=== PATIENT | female | born 1960 | race Caucasian/White ===

== ENCOUNTER 2017-01-03 09:01 | Emergency (ER) | payer BC ==
--- NOTE | 2017-01-03 09:21 | UC ---
Skin Complaint HPI - HPI Summary HPI Summary: Onset 12/31/16 upper left inner thigh redness, pain,fluid feeling swelling with warmth; pt suspects insect denies fever or redness spreading . very active and just ernt to [place] and there were significant numbers of insect bites all over the body from deerr and black flies. No ticks. No recent trauma or falls. No obvious injury or pain to that area . no fever . denies SOB/ RAJAN / CP / calf pain [ End ] - History of Current Complaint Chief Complaint: UCSkin Time Seen by Provider: 01/03/17 09:19 Stated Complaint: LEFT LEG SKIN COMPLAINT Hx Obtained From: Patient Hx Last Menstrual Period: 1 yr ?: No Onset/Duration: Sudden Onset - Allergy/Home Medications Allergies/Adverse Reactions: Allergies Allergy/AdvReac Type Severity Reaction Status Date / Time Sulfa Antibiotics Allergy Rash Verified 01/03/17 09:12 Home Medications: Home Medications Acetaminophen TAB* [Tylenol TAB*] 650 mg PO Q8H PRN 01/03/17 [History Confirmed 01/03/17] Antidepressant Tab 1 tab PO WEEKLY 01/03/17 [History Confirmed 01/03/17] Review of Systems Constitutional: Negative Skin: Negative, Other - redness Eyes: Negative ENT: Negative Respiratory: Negative Cardiovascular: Negative Gastrointestinal: Negative Genitourinary: Negative Motor: Negative Neurovascular: Negative Musculoskeletal: Negative Neurological: Negative Psychological: Negative All Other Systems Reviewed And Are Negative: Yes PMH/Surg Hx/FS Hx/Imm Hx Previously Healthy: Yes Psychological History: Depression - Surgical History Surgical History: Yes Surgery Procedure, Year, and Place: tonsils - Social History Occupation: Employed Full-time Lives: With Family Alcohol Use: Occasionally Substance Use Type: None Smoking Status (MU): Never Smoked Tobacco Physical Exam Triage Information Reviewed: Yes Appearance: Well-Appearing, No Pain Distress, Well-Nourished Vital Signs: Initial Vital Signs Temp 99.3 F 01/03/17 09:05 Pulse 87 01/03/17 09:05 Resp 18 01/03/17 09:05 BP 106/68 01/03/17 09:05 Vital Signs Reviewed: Yes Eye Exam: Normal Neck: Positive: 1 Respiratory Exam: Normal Cardiovascular Exam: Normal Musculoskeletal Exam: Normal Neurological Exam: Normal Psychological Exam: Normal Skin Exam: Normal Skin: Positive: significant lesion(s) - numerous bug bites / insect bites on the b/l arms and legs - Additional Comments Right posterior leg about middle way down hamstring area with red, raised, palpable (2x2cm) tender area with induration present and small insect bite in center. no streaking. no homans. no drainage and superficial but not close enough to I&D. Course/Dx - Course Course Of Treatment: Appears to be superficial potential abscess developing with cellulitis around the area. Numerous insect bites indicating likely insect bite causing this infection. We discussed at length potential DVT but uncommonly to be as easily palpable , she is very active and just walked up [employer] and no trauma so very low chance for DVT. She is agreeable to start antibiotics, hot packing TID and if the area spreads or not improved then seek care in 24 hours for potential I&D or pending the appearance of the area get a sono if warranted. - Differential Diagnoses - Skin Complaint Differential Diagnoses: Abscess, Contact Dermatitis - Diagnoses Provider Diagnoses: Cellulitis right lower extremity from insect bite Discharge - Discharge Plan Condition: Good Disposition: HOME Prescriptions: Cephalexin CAP* [Keflex 500 CAP*] 500 mg PO TID #30 cap Patient Education Materials: Cellulitis (ED) Referrals: Carmen Noonan MD [Primary Care Provider] - 1 Day Additional Instructions: As we discussed if the redness spreads or the area becomes larger seek medical care immediately. If you develop any shortness of breath then seek care as well. Also continue with your probiotics.
[2017-01-03 09:37] VITALS: BP 106/68
== END 2017-01-03 09:42 | disposition home or self-care (01) ==
LOC: UCCORT 09:01
DX: S80.861A Insect bite (nonvenomous), right lower leg, initial encounter (principal); L03.115 Cellulitis of right lower limb; W57.XXXA Bitten or stung by nonvenomous insect and other nonvenomous arthropods, initial encounter; Y93.9 Activity, unspecified; Y92.9 Unspecified place or not applicable; Z88.2 Allergy status to sulfonamides; F32.9 Major depressive disorder, single episode, unspecified
CPT/HCPCS: 99202; G0463

== ENCOUNTER 2017-03-10 15:20 | Emergency (ER) | payer BC ==
[2017-03-10 15:39] VITALS: BP 105/55
--- NOTE | 2017-03-10 16:26 | UC ---
Complaint Female HPI - HPI Summary HPI Summary: pt c/o sudden onset of frequency, urgency and dysuria X 1 day. - History Of Current Complaint Chief Complaint: UCGU Stated Complaint: URINARY Time Seen by Provider: 03/10/17 16:12 Hx Obtained From: Patient Hx Last Menstrual Period: 1 yr ?: No Onset/Duration: Sudden Onset, Still Present Severity Initially: Mild Severity Currently: Mild Character: Burning Aggravating Factor(s): Urination Associated Signs And Symptoms: Positive: Negative - Risk Factors Ectopic Risk Factor: Negative Ovarian Torsion Risk Factor: Negative - Allergies/Home Medications Allergies/Adverse Reactions: Allergies Allergy/AdvReac Type Severity Reaction Status Date / Time Sulfa Antibiotics Allergy Rash Verified 03/10/17 15:39 PMH/Surg Hx/FS Hx/Imm Hx Previously Healthy: Yes - Surgical History Surgical History: Yes Surgery Procedure, Year, and Place: tonsils - Family History Known Family History: Positive: Cardiac Disease - Social History Occupation: Employed Full-time Lives: With Family Alcohol Use: Occasionally Substance Use Type: None Smoking Status (MU): Never Smoked Tobacco Have You Smoked in the Last Year: No Review of Systems Constitutional: Negative Skin: Negative Eyes: Negative ENT: Negative Respiratory: Negative Cardiovascular: Negative Gastrointestinal: Negative Genitourinary: Dysuria, Frequency, Urgency Motor: Negative Neurovascular: Negative Musculoskeletal: Negative Neurological: Negative Psychological: Negative Is Patient Immunocompromised?: No All Other Systems Reviewed And Are Negative: Yes Physical Exam Triage Information Reviewed: Yes Appearance: Well-Appearing Vital Signs: Initial Vital Signs Temp 97.7 F 03/10/17 15:36 Pulse 66 03/10/17 15:36 Resp 16 03/10/17 15:36 BP 105/55 03/10/17 15:36 Pulse Ox 100 03/10/17 15:36 Eye Exam: Normal ENT Exam: Normal Neck exam: Normal Respiratory Exam: Normal Cardiovascular Exam: Normal Abdominal Exam: Normal Musculoskeletal Exam: Normal Neurological Exam: Normal Psychological Exam: Normal Skin Exam: Normal Complaint Female Dx - Course Course Of Treatment: I discussed with the pt the need to follow up with your PCP regarding the finding today of Hematuria. Pt verbalized understanding and agreed to plan of care. - Differential Dx/Diagnosis Differential Diagnosis/HQI/PQRI: Urinary Tract Infection Provider Diagnoses: dysuria. hematuria Discharge - Discharge Plan Condition: Stable Disposition: HOME Prescriptions: Cephalexin CAP* [Keflex 500 CAP*] 500 mg PO Q12H #10 cap Patient Education Materials: Hematuria (ED), Dysuria (ED) Referrals: Juliet Jean Baptiste MD [Primary Care Provider] - (Please follow up with your PCP or return to clinic. )
--- NOTE | 2017-03-14 12:27 | UC ---
Progress - Progress Note Progress Note: neg cx -- stop antibiotics and f/u pcp
== END 2017-03-10 16:35 | disposition home or self-care (01) ==
LOC: UCCORT 15:20
DX: R30.0 Dysuria (principal); R31.9 Hematuria, unspecified; Z88.2 Allergy status to sulfonamides
CPT/HCPCS: 81003; 87086; 99212; G0463

== ENCOUNTER 2018-06-10 09:10 | Emergency (ER) | payer BC ==
[2018-06-10 09:49] VITALS: BP 92/71
--- NOTE | 2018-06-10 10:17 | UC ---
UC General HPI - HPI Summary HPI Summary: pt c/o painful-hard lump L jaw that is worsening over 2 days. she got a little puss from it. no hx MRSA, dental pain, fever or DM. tx'ing with warm compresses. - History of Current Complaint Chief Complaint: NIKOLAIkin Stated Complaint: SKIN CONCERN - FACIAL Time Seen by Provider: 06/10/18 10:10 Hx Obtained From: Patient Hx Last Menstrual Period: 1 yr Onset/Duration: Gradual Onset Timing: Constant Pain Intensity: 5 Associated Signs & Symptoms: Negative: Headache - Allergy/Home Medications Allergies/Adverse Reactions: Allergies Allergy/AdvReac Type Severity Reaction Status Date / Time Sulfa (Sulfonamide Allergy Rash Verified 06/10/18 09:44 Antibiotics) Home Medications: Home Medications Multivitamins/Minerals TAB* [Theragran/minerals TAB*] 1 tab PO DAILY 06/10/18 [ History Confirmed 06/10/18] PMH/Surg Hx/FS Hx/Imm Hx Previously Healthy: Yes - Surgical History Surgical History: Yes Surgery Procedure, Year, and Place: tonsils - Family History Known Family History: Positive: Cardiac Disease - Social History Occupation: Retired Alcohol Use: Occasionally Substance Use Type: None Smoking Status (MU): Never Smoked Tobacco Have You Smoked in the Last Year: No - Immunization History Vaccination Up to Date: Yes Review of Systems All Other Systems Reviewed And Are Negative: Yes Constitutional: Positive: Negative Skin: Positive: Rash - BUMP L JAW Eyes: Positive: Negative ENT: Positive: Negative Respiratory: Positive: Negative Cardiovascular: Positive: Negative Gastrointestinal: Positive: Negative Genitourinary: Positive: Negative Motor: Positive: Negative Neurovascular: Positive: Negative Musculoskeletal: Positive: Negative Neurological: Positive: Negative Psychological: Positive: Negative Physical Exam Triage Information Reviewed: Yes Appearance: Well-Appearing Vital Signs: Initial Vital Signs Temp 97.8 F 06/10/18 09:45 Pulse 87 06/10/18 09:45 Resp 14 06/10/18 09:45 BP 92/71 06/10/18 09:45 Pulse Ox 100 06/10/18 09:45 Eye Exam: Normal Eyes: Positive: Conjunctiva Clear ENT: Positive: Pharynx normal, TMs normal. Negative: Nasal congestion, Nasal drainage Dental: Negative: Percussion Tenderness @, Dental Fracture @, Abscess @ Neck: Positive: Supple, Nontender, No Lymphadenopathy Respiratory: Positive: Lungs clear, Normal breath sounds Cardiovascular: Positive: RRR, No Murmur Abdomen Description: Positive: Nontender, No Organomegaly, Soft Bowel Sounds: Positive: Present Musculoskeletal: Positive: ROM Intact Neurological: Positive: Alert, Other: - CN 2-12 GROSSLY INTACT Skin Exam: Normal, Other - 2CM RED INDURATED AREA L SIDE OF JAW ADJACENT TO MENTAL NERVE C/W ABSCESS. CENTRAL ABRASION BUT NOT DRAINING. Course/Dx - Course Course Of Treatment: ABSCESS BY A NERVE THUS WILL REFER TO ENT FOR ADDITIONAL TX. APPT TODAY. SINGLE DOSE OF KEFLE GIVEN HERE. ADDITIONAL ANTIBIOTIC DEFER TO ENT. - Diagnoses Provider Diagnosis: Abscess of jaw, left Discharge - Sign-Out/Discharge Documenting (check all that apply): Patient Departure All imaging exams completed and their final reports reviewed: No Studies - Discharge Plan Condition: Stable Disposition: HOME Patient Education Materials: Abscess (ED) Referrals: Jevon Ndiaye MD [Medical Doctor] - Additional Instructions: FOLLOW UP TODAY AT 1:45PM SCHEDULED BY [facility]. THEY ARE LOCATED DIRECTLY BEHIND THIS [facility] - Billing Disposition and Condition Condition: STABLE Disposition: Home
[2018-06-10] MEDS ORDERED: Cephalexin CAP* 500 MG PO ONE (10:26)
== END 2018-06-10 10:36 | disposition home or self-care (01) ==
LOC: UCCORT 09:10
DX: M27.2 Inflammatory conditions of jaws (principal); Z88.2 Allergy status to sulfonamides
CPT/HCPCS: 99212; A9270-GY; G0463

== ENCOUNTER 2018-12-16 09:40 | Emergency (ER) | payer BC ==
--- OUTSIDE RECORDS SUMMARY | 2018-12-16 10:00 | XMS REPORT | Continuity of Care Document ---
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 Payers Date Identification Numbers Payment Provider Subscriber Effective: 2014 Policy Number: [id number] [employer] Georgette Muñoz PayID: [id number] [address] [address] [place] [address] Problems Active Problems Provider Date Mild recurrent major depression Juliet Medina MD Onset: 08/18/2014 Cobalamin deficiency Juliet Medina MD Onset: 04/06/2016 Iron deficiency anemia Juliet Medina MD Onset: 04/06/2016 Hematuria syndrome Juliet Medina MD Onset: 05/01/2017 Family History Date Family Member(s) Observation Comments General Leukemia General Hypothyroidism Father Leukemia Father Av malformation LEFT side of causes seizures. 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 ETOH Use Occasionally consumes alcohol Tobacco Use Start: Unknown Patient has never smoked Smoking Status Reviewed: 05/01/18 Patient has never smoked Allergies, Adverse Reactions, Alerts Active Allergies Reaction Severity Comments Date Sulfa Drugs HIVES 08/18/2014 Medications Active Medications SIG Qnty Indications Ordering Provider Date Fluoxetine HCL (PMDD) 1po daily 30caps F33.0 Juliet Medina MD 09/23/2018 10mg Capsules Womens 50+ Advanced 1 by mouth Unknown every day Capsules Probiotic 1 by mouth Unknown Capsules every day History Medications Fluoxetine HCL (PMDD) 1po daily 30caps F33.0 Juliet Medina MD 2014 - 04/30/2018 10mg Capsules Fluoxetine HCL 1 every week 4caps F33.0 Juliet Medina MD - 90mg 04/05/2015 Capsules Immunizations CPT Code Status Date Vaccine Lot # [id number] Refused 05/01/2018 Flu Vaccine NOS [id number] Refused 05/01/2018 Shingrix (Shingles) Zoster Vaccine HZV, Recombinant , Subunit, Adj Vital Signs Date Vital Result Comment 12/09/2018 1:28pm Weight 146.00 lb Heart Rate 80 /min BP Systolic 108 mmHg BP Diastolic 66 mmHg Respiratory Rate 18 /min Height 67.5 inches 5'7.50" O2 % BldC Oximetry 98 % Ra BMI (Body Mass Index) 22.5 kg/m2 05/01/2018 1:59pm Weight 140.00 lb Heart Rate 75 /min BP Systolic 110 mmHg BP Diastolic 68 mmHg Respiratory Rate 16 /min Height 67.5 inches 5'7.50" O2 % BldC Oximetry 99 % Ra BMI (Body Mass Index) 21.6 kg/m2 04/29/2017 3:00pm Weight 140.00 lb Heart Rate 68 /min BP Systolic 102 mmHg BP Diastolic 70 mmHg Respiratory Rate 18 /min Height 67.5 inches 5'7.50" 04/29/17 BMI (Body Mass Index) 21.6 kg/m2 04/06/2016 2:06pm Weight 136.00 lb Heart Rate 76 /min BP Systolic 98 mmHg BP Diastolic 60 mmHg Respiratory Rate 18 /min Height 67.5 inches 5'7.50" 04/06/16 BMI (Body Mass Index) 21.0 kg/m2 06/28/2015 2:45pm Weight 136.00 lb Heart Rate 76 /min BP Systolic 102 mmHg BP Diastolic 70 mmHg Respiratory Rate 18 /min Height 67.5 inches 5'7.50" 08/18/14 BMI (Body Mass Index) 21.0 kg/m2 04/05/2015 2:21pm Weight 137.00 lb Heart Rate 76 /min BP Systolic 112 mmHg BP Diastolic 70 mmHg Respiratory Rate 18 /min Height 67.5 inches 5'7.50" 08/18/14 BMI (Body Mass Index) 21.1 kg/m2 08/18/2014 9:33am Weight 140.00 lb Heart Rate 72 /min BP Systolic 116 mmHg BP Diastolic 70 mmHg Respiratory Rate 18 /min Height 67.5 inches 5'7.50" 08/18/14 BMI (Body Mass Index) 21.6 kg/m2 Results Test Date Facility Test Result H/L Range Note CBS 07/15/2018 [facility] White Blood 4.9 K/uL N 3.1- 10.7 1 W/Automated (315)- - Count Diff Red Blood Count 4.51 M/uL N 3.90-5.40 Hemoglobin 14.0 gm/dL N 11.6-15.8 Hematocrit 41.3 % N 36.0-46.1 Mean Cell Volume 91.6 fl N 80.9-99.0 Mean Corpuscular HGB 31.0 pg N 25.9-32.7 Mean Corpuscular HGB Conc 33.9 g/dL N 30.8-34.3 Platelet Count 293 K/uL N 155-360 Red Cell Distri Width SD 42.6 fl N 36-47 Red Cell Distri Width %CV 13.0 % N 11.7-14.4 Mean Platelet Volume 9.0 fL N 8.9-12.4 Neut% 67.0 % N 40.4-72.8 Lymph % 22.4 % N 20.0-42.0 [place] % 8.0 % N 4.3-13.2 Eo% 2.0 % N 0.0-6.6 Bas% 0.6 % N 0.0-1.1 Neut# 3.28 K/uL N 1.8-7.0 Lymph # 1.10 K/uL N 1.0-4.0 [place] # 0.39 K/uL N 0.3-0.9 Eos # 0.10 K/uL N 0.0-0.5 Baso # 0.03 K/uL N 0.0-0.1 Laboratory test 07/15/2018 [facility] Vitamin B12 406 pg/ mL N 193-986 finding (315)- - Ferritin 17 ng/mL N 8-252 Comprehensive Metabolic 07/15/2018 [facility] Glucose 83 mg/dL N 74-106 Panel (315)- - BUN 20 mg/dL High 7-18 Creatinine 0.8 mg/dL 0.6-1.3 Glom Filtration Rate, Estimate >60 mL/min >60 If >60 mL/min >60 2 BUN/Creat 25.0 ratio Sodium 143 mmol/L N 136-145 Potassium 4.2 mmol/L N 3.5-5.1 Chloride 109 mmol/L High 98-107 Carbon Dioxide 28 mmol/L N 21-32 Anion Gap 6 mEq/L Low 8-16 Calcium 8.4 mg/dL Low 8.5-10.1 Total Protein 7.1 g/dL N 6.4-8.2 Albumin 3.7 g/dL N 3.4-5.0 Globulin 3.4 g/dL N 1.9-4.3 Alb/Glob 1.1 ratio Bilirubin,Total 0.3 mg/dL N 0.2-1.0 Sgot/Ast 19 U/L N 15-37 SGPT/Alt 24 U/L N 12-78 Alkaline Phosphatase 57 U/L N 45-117 LDL Cholesterol 07/15/2018 [facility] Cholesterol 182 mg/ dL <200 3 Profile (315)- - Triglycerides 70 mg/dL <150 4 HDL Cholesterol 62 mg/dL >40 5 LDL-Cholesterol 106 mg/dL < 100 6 Laboratory test 07/15/2018 [facility] Thyroid Stim 2.05 uIU/mL N 0.30-4.20 finding (315)- - Hormone Laboratory test 07/15/2018 [facility] Vitamin 40.0 ng/mL 30.0-100.0 7 finding (315)- - D,25-Hydroxy Urinalysis With 01/02/2018 [facility] Urine Color YELLOW Yellow 8 Microscopic (315)- - Urine Clarity CLEAR Clear Urine Glucose - Dipstick NEGATIVE mg/dL Negative Urine Bilirubin - Dipstick NEGATIVE Negative Urine Ketone NEGATIVE mg/dL Negative Urine Specific [place] <=1.005 Low 1.010-1.030 Urine Blood SMALL Abnormal Negative Urine PH 6.5 N 6.5-7.5 Urine Protein - Dipstick NEGATIVE mg/dL Negative Urine Urobilinogen - Dipstick 0.2 E.U./dL N 0.2-1.0 Urine Nitrite - Dipstick NEGATIVE Negative Urine Leuk Esterase NEGATIVE Negative Urine RBC 0-2 rbc/hpf 0-2 Urine WBC 0-2 wbc/hpf 0-7 Urine Epithelial Cells VERY FEW /lpf None Seen Urine Bacteria VERY FEW None Seen Source: URINE, CLEAN CAT <SEE NOTE> 9 Urinalysis With 05/24/2017 [facility] Urine Color YELLOW Yellow 10 Microscopic (315)- - Urine Clarity CLEAR Clear Urine Glucose - Dipstick NEGATIVE mg/dL Negative Urine Bilirubin - Dipstick NEGATIVE Negative Urine Ketone 15 mg/dL High Negative Urine Specific [place] 1.010 N 1.010-1.030 Urine Blood LARGE Abnormal Negative Urine PH 7.5 N 6.5-7.5 Urine Protein - Dipstick TRACE mg/dL Negative Urine Urobilinogen - Dipstick 0.2 E.U./dL N 0.2-1.0 Urine Nitrite - Dipstick NEGATIVE Negative Urine Leuk Esterase SMALL Abnormal Negative Urine RBC 20-30 rbc/hpf High 0-2 Urine WBC 0-2 wbc/hpf 0-7 Urine Epithelial Cells VERY FEW /lpf None Seen Urine Bacteria VERY FEW None Seen Source: URINE, CLEAN CAT <SEE NOTE> 11 Iron Panel 05/04/2017 [facility] Serum Iron 93 g/dL N 50-170 12 (315)- - Total Iron Binding Capacity 317 g/dL N 250-450 Transferrin %Saturation 29 % N 12-57 Laboratory test 05/04/2017 [facility] Vitamin 40.6 ng/mL 30.0-100.0 13 finding (315)- - D,25-Hydroxy Vitamin B12 522 pg/mL N 193-986 Thyroid Stim Hormone 1.67 uIU/mL N 0.30-4.20 Comp Metabolic Panel-RL 05/04/2017 [facility] Glucose 76 mg/dL N 74-106 (315)- - BUN 12 mg/dL N 7-18 Creatinine 0.8 mg/dL N 0.6-1.3 Glom Filtration Rate, Estimate >60 mL/min >60 If >60 mL/min >60 14 BUN/Creat 15.0 ratio Sodium 143 mmol/L N 136-145 Potassium 4.1 mmol/L N 3.5-5.1 Chloride 109 mmol/L High 98-107 Carbon Dioxide 28 mmol/L N 21-32 Anion Gap 6 mEq/L Low 8-16 Calcium 8.9 mg/dL N 8.5-10.1 Total Protein 7.0 g/dL N 6.4-8.2 Albumin 3.7 g/dL N 3.4-5.0 Globulin 3.3 g/dL N 1.9-4.3 Alb/Glob 1.1 ratio Bilirubin,Total 0.4 mg/dL N 0.2-1.0 Sgot/Ast 16 U/L N 15-37 SGPT/Alt 19 U/L N 12-78 Alkaline Phosphatase 56 U/L N 45-117 Lipid Panel 05/04/2017 [facility] Cholesterol 174 mg/dL <200 15 (315)- - Triglycerides 102 mg/dL <150 16 HDL Cholesterol 61 mg/dL >40 17 LDL-Cholesterol 93 mg/dL < 100 18 Laboratory test 05/04/2017 [facility] Ferritin 15 ng/mL N 8-252 finding (315)- - CBC With Auto Diff 05/04/2017 [facility] White Blood 5.0 K/uL N 3.1-10.7 (315)- - Count Red Blood Count 4.43 M/uL N 3.90-5.40 Hemoglobin 13.8 gm/dL N 11.6-15.8 Hematocrit 40.7 % N 36.0-46.1 Mean Cell Volume 91.9 fl N 80.9-99.0 Mean Corpuscular HGB 31.2 pg N 25.9-32.7 Mean Corpuscular HGB Conc 33.9 g/dL N 30.8-34.3 Platelet Count 302 K/uL N 150-400 Red Cell Distri Width SD 42.9 fl N 3-47 Red Cell Distri Width %CV 13.1 % N 11.7-14.4 Mean Platelet Volume 9.0 fL N 8.9-12.4 Neut% 53.9 % N 40.4-72.8 Lymph % 34.0 % N 20.0-42.0 [place] % 9.1 % N 4.3-13.2 Eo% 2.2 % N 0.0-6.6 Bas% 0.8 % N 0.0-1.1 Neut# 2.68 K/uL N 1.8-7.0 Lymph # 1.69 K/uL N 1.0-4.0 [place] # 0.45 K/uL N 0.3-0.9 Eos # 0.11 K/uL N 0.0-0.5 Baso # 0.04 K/uL N 0.0-0.1 Rout Urine W/ Micro -RL 04/29/2017 [facility] Color MEME Appearance CLOUDY Spec Grav Urine 1.028 (1.003-1.030) PH Urine 5.5 (5.0-7.5) Leuk Esterase 1+ Abnormal (Neg) Nitrite Urine NEGATIVE (Neg) Protein Urine NEGATIVE (Neg) Glucose Urine NEGATIVE (Neg) Ketone Urine NEGATIVE (Neg) Urobilinogen 0.2 mg/dL (0-1.0) Bilirubin Urine NEGATIVE (Neg) Blood/HGB Urine 1+ Abnormal (Neg) Urine WBC 3-5 [HPF] (0-5) Urine RBC * 6-10 [HPF] (0-2) Bacteria 1+ [HPF] Caox Crystals 1+ [HPF] 19 Laboratory test 04/29/2017 [facility] Urine Culture Microbiology res 20 finding <SEE NOTE> [facility] SEE NOTE 21 finding Thin Prep Laboratory test 04/29/2017 [facility] Allia 22 finding [phone] <SEE NOTE> Laboratory test 04/06/2016 [facility] Hepatitis C NONREACTIVE Nonreactive finding Virus Antibody Iron Panel [facility], Total 110 g/dL 50-170 Transferrin 284.3 mg/dL 203.0-362.0 Tibc (calc) 398 g/dL 261-478 % Iron Saturation 27.6 % 13.0-45.0 CBC With Auto Diff 04/06/2016 [facility] WBC 6.6 K/uL 4.1-11.0 RBC 4.23 M/uL 4.00-5.40 Hemoglobin 12.8 gm/dL 12.0-16.0 Hematocrit 37.7 % 36.0-47.0 MCV 88.9 fL 80.0-97.0 MCH 30.2 pg 27.0-32.0 MCHC 34.0 g/dL 32.0-36.0 RDW 14.1 % 11.5-14.5 PLT Count 358 K/ul 140-400 Neutrophil 61.0 % 35.0-75.0 Lymphocyte 28.7 % 16.0-52.0 Monocyte 7.0 % 2.0-10.0 Eosinophil 2.2 % 0.0-5.0 Basophil 1.1 % 0.0-4.0 Abs Neutrophils 4.0 K/uL 2.1-8.0 Abs Lymphocytes 1.9 K/uL 0.8-5.5 Abs Monocytes 0.5 K/uL 0.1-1.0 Abs Eosinophils 0.1 K/uL 0.0-0.5 Abs Basophils 0.1 K/uL 0.0-0.3 Laboratory test finding 04/06/2016 [facility] Vitamin B12 513 pg/mL 180- 914 TSH 1.99 uIU/mL 0.35-4.94 Comprehensive Metabolic (CMP) 04/06/2016 [facility] Sodium 141 mmol/L 134- 142 Potassium 4.0 mmol/L 3.5-5.2 Chloride 105 mmol/L 97-109 Carbon Dioxide 30 mmol/L 24-34 Glucose 80 mg/dL 70-105 BUN 18 mg/dL 6-26 Creatinine 0.9 mg/dL 0.5-1.4 Calcium 9.5 mg/dL 8.5-10.2 Total Protein 6.6 g/dL 6.0-8.0 Albumin 4.2 g/dL 3.6-4.9 Globulin 2.4 g/dL 2.0-3.5 A/G Ratio 1.8 Ratio 1.0-2.2 Total Bilirubin 0.3 mg/dL 0.1-1.3 Alkaline Phosphatase 46 U/L 24-140 Alt 11 U/L 3-42 Ast 17 U/L 8-42 Anion Gap 10 mmol/L 6-14 Fátima Egfr >60 >60 23 Non Fátima Egfr >60 >60 24 CBC With Auto 06/21/2015 [facility] White Blood 5.2 K/uL 3.1-10.7 Diff (315)- - Count Red Blood Count 4.29 M/uL 3.90-5.40 Hemoglobin 10.2 gm/dL Low 11.6-15.8 Hematocrit 32.8 % Low 36.0-46.1 Mean Cell Volume 76.5 fl Low 80.9-99.0 Mean Corpuscular HGB 23.8 pg Low 25.9-32.7 Mean Corpuscular HGB Conc 31.1 g/dL 30.8-34.3 Platelet Count 431 K/uL High 155-360 Red Cell Distri Width SD 48.1 fl High 3-47 Red Cell Distri Width %CV 17.7 % High 11.7-14.4 Mean Platelet Volume 8.8 fL Low 8.9-12.4 Neut% 43.4 % 40.4-72.8 Lymph % 41.9 % 17.0-46.1 [place] % 9.8 % 4.3-13.2 Eo% 3.8 % 0.0-6.6 Bas% 1.1 % 0.0-1.1 Neut# 2.27 K/uL 1.0-7.0 Lymph # 2.19 K/uL 1.8-7.0 [place] # 0.51 K/uL 0.3-0.9 Eos # 0.20 K/uL 0.0-0.5 Baso # 0.06 K/uL 0.0-0.1 Laboratory test 06/21/2015 [facility] Vitamin B12 495 pg/ mL 193-986 25 finding (315)- - Iron Panel 06/21/2015 [facility] Serum Iron 27 g/dL Low 50-170 (315)- - Total Iron Binding Capacity 426 g/dL 250-450 Transferrin %Saturation 6 % Low 12-57 Vitamin B12 And 02/08/2015 [facility] Vitamin B12 282 pg/ mL 193-986 Folate (315)- - Folic Acid 18.3 ng/mL High 3.1-17.5 Iron-Tibc-%Sat 02/08/2015 [facility] Serum Iron 80 g/ dL 50-170 (315)- - Total Iron Binding Capacity 445 g/dL 250-450 Transferrin %Saturation 18 % 12-57 Laboratory test 02/08/2015 [facility] Gastric See Note 26 finding (315)- - Biopsy/Polyp Lipid 08/18/2014 [facility] Cholesterol 186 mg/dL 50-199 27 Triglycerides 116 mg/dL 30-200 HDL 49 mg/dL 35-85 28 Chol/ HDL Ratio 3.8 ratio 3.7-5.6 VLDL 23 mg/dL 2-29 LDL (Calc) 114 mg/dL High 20-99 29 Laboratory test finding 08/18/2014 [facility] TSH 2.89 uIU/mL 0.34-5.60 CBC With Auto Diff 08/18/2014 [facility] WBC 6.0 K/uL 4.1-11.0 RBC 4.52 M/uL 4.00-5.40 Hemoglobin 10.5 gm/dL Low 12.0-16.0 Hematocrit 34.2 % Low 36.0-47.0 MCV 75.6 fL Low 80.0-97.0 MCH 23.3 pg Low 27.0-32.0 MCHC 30.8 g/dL Low 32.0-36.0 RDW 17.2 % High 11.5-14.5 PLT Count 449 K/ul High 140-400 Neutrophil 59.6 % 35.0-75.0 Lymphocyte 27.2 % 16.0-52.0 Monocyte 9.9 % 2.0-10.0 Eosinophil 2.6 % 0.0-5.0 Basophil 0.7 % 0.0-4.0 Abs Neutrophils 3.6 K/uL 2.1-8.0 Abs Lymphocytes 1.6 K/uL 0.8-5.5 Abmon 0.6 K/uL 0.1-1.0 Abs Eosinophils 0.2 K/uL 0.0-0.5 Abs Basophils 0.0 K/uL 0.0-0.3 Basic (BMP) 08/18/2014 [facility] Sodium 140 mmol/L 134-142 Potassium 5.1 mmol/L 3.5-5.2 Chloride 106 mmol/L 97-109 Carbon Dioxide 28 mmol/L 24-34 Glucose 81 mg/dL 70-105 BUN 17 mg/dL 6-26 Creatinine 0.8 mg/dL 0.5-1.4 Calcium 9.6 mg/dL 8.5-10.2 Anion Gap 11 mmol/L 6-14 Non Fátima Egfr >60 >60 30 Fátima Egfr >60 >60 31 1 D50.9 E53.8 F33.0 Z01.419 2 Note: Persistent reduction for 3 months or more in an eGFR <60 mL/min/1.73 m2 defines CKD. Patients with eGFR values >/=60 mL/min/1.73 m2 may also have CKD if evidence of persistent proteinuria is present. The original MDRD equation for estimated GFR is not valid for patients less than 18 years of age. Additional information may be found at www.kdoqi.org. 3 Reference Guidelines*: Desirable: ........... < 200 mg/dL Borderline High: ..... 200-239 mg/dL High: ................ >=240 mg/dL * The National Cholesterol Education Program (NCEP) 4 Reference Guidelines*: Normal: ............. < 150 mg/dL Borderline High: .... 150-199 mg/dL High: ............... 200-499 mg/dL Very High: .......... > 500 mg/dL * Source: National Cholesterol Education Program (NCEP) 5 Reference Guidelines*: Low HDL: ..... < 40 mg/dL Normal: ..... 40-60 mg/dL Desirable: ... > 60 mg/dL *The National Cholesterol Education Program(NCEP) 6 Reference Guidelines*: Optimal:........... <100 mg/dL Near Optimal....... 100-129 mg/dL Borderline High.... 130-159 mg/dL High............... 160-189 mg/dL Very High.......... >=190 mg/dL * Source: National Cholesterol Education Program (NCEP) 7 Vitamin D deficiency has been defined by the [place] [employer] and an Endocrine Society practice guideline as a level of serum 25-OH vitamin D less than 20 ng/mL (1,2). The Endocrine Society went on to further define vitamin D insufficiency as a level between 21 and 29 ng/mL (2). 1. IOM ([place] [employer]). 2010. Dietary reference intakes for calcium and D. [place]: The National Academies Press. 2. Ritchie MF, Lyssa NC, Steve DOYLE, et al. Evaluation, treatment, and prevention of vitamin D deficiency: an Endocrine Society clinical practice guideline. JCEM. 2010; 96(7):1911-30. Performed at: RN - [facility] [address] [id number] [employer] Operator: Jazmyn Ochoa MD, Phone: [phone] R31.21 9 URINE, CLEAN CATCH 10 KIDNEY STONE, UNABLE TO URINATE, VOMITING 11 URINE, CLEAN CATCH 12 D50.9 E53.8 F33.0 Z01.419 13 Vitamin D deficiency has been defined by the [place] [employer] and an Endocrine Society practice guideline as a level of serum 25-OH vitamin D less than 20 ng/mL (1,2). The Endocrine Society went on to further define vitamin D insufficiency as a level between 21 and 29 ng/mL (2). 1. IOM ([place] [employer]). 2010. Dietary reference intakes for calcium and D. [place]: The National Academies Press. 2. Ritchie MF, Lyssa ONEIL, Steve DOYLE, et al. Evaluation, treatment, and prevention of vitamin D deficiency: an Endocrine Society clinical practice guideline. JCEM. 2010; 96(7):1911-30. Performed at: RN - [facility] [address] [id number] [employer] Operator: Jazmyn Ochoa MD, Phone: [phone] 14 Note: Persistent reduction for 3 months or more in an eGFR <60 mL/min/1.73 m2 defines CKD. Patients with eGFR values >/=60 mL/min/1.73 m2 may also have CKD if evidence of persistent proteinuria is present. The original MDRD equation for estimated GFR is not valid for patients less than 18 years of age. Additional information may be found at www.kdoqi.org. 15 Reference Guidelines*: Desirable: ........... < 200 mg/dL Borderline High: ..... 200-239 mg/dL High: ................ >=240 mg/dL * The National Cholesterol Education Program (NCEP) 16 Reference Guidelines*: Normal: ............. < 150 mg/dL Borderline High: .... 150-199 mg/dL High: ............... 200-499 mg/dL Very High: .......... > 500 mg/dL * Source: National Cholesterol Education Program (NCEP) 17 Reference Guidelines*: Low HDL: ..... < 40 mg/dL Normal: ..... 40-60 mg/dL Desirable: ... > 60 mg/dL *The National Cholesterol Education Program(NCEP) 18 Reference Guidelines*: Optimal:........... <100 mg/dL Near Optimal....... 100-129 mg/dL Borderline High.... 130-159 mg/dL High............... 160-189 mg/dL Very High.......... >=190 mg/dL * Source: National Cholesterol Education Program (NCEP) 19 Unless otherwise specified, testing performed by [facility] [address] [place] [id number] 20 Microbiology results SOURCE Clean Catch Midstream FINAL RESULT 50,000 CFU/ML Mixed urogenital edwardo consistent with contamination. Request fresh specimen if indicated. 21 Diplopia Bumpr [facility]. [address] [place] [id number] CYTOLOGY REPORT Source of Specimen(s): Thin Prep Cervical / Endocervical Pap Smear - One Vial Date of Last Menstrual Period: 4-5 yrs ago Menstrual History: Post-menopausal Other Clinical Conditions: Last Pap Smear: 2013 normal HPV ASSAY REQUESTED Specimen Adequacy SATISFACTORY FOR EVALUATION PRESENCE OF ENDOCERVICAL/TRANSFORMATION ZONE COMPONENT General Categorization NEGATIVE FOR INTRAEPITHELIAL LESION OR MALIGNANCY Interpretation NEGATIVE FOR INTRAEPITHELIAL LESION OR MALIGNANCY Comment HPV testing will be performed and a separate report will be issued. Reported: 05/01/2017 07:58 Electronically Signed Out By Rosemarie CAMPA(ASCP) duong ICD9 Code: Z01.419 Unless otherwise specified, testing performed by [facility] [address] [place] [id number] [facility] [address] [address] Amplified Molecular High Risk HPV Test Patient Name:GEORGETTE MUÑOZ Patient :1960 Ordering Physician:JULIET MEDINA MD Accession Number [id number] Specimen(s) Received A: High Risk HPV Thin Prep Cervical / Endocervical Pap Smear - One Vial Other Case Numbers: [id number] Diagnosis RISK GROUPS RESULTS High Risk NEGATIVE Tested for HPV Types (16, 18, 31, 33, 35, 39, 45, 51, 52, 56, 58, 59, 66, 68) Reported: 05/02/2017 12:11 Electronically Signed Out By Daisy Chen vikas Crowley 23 Concerning GFR Guidelines for Americans: Normal function or mild renal disease, if clinically at risk: >/=60 mL/min Moderately decreased: 30-59 Severely decreased: 15-29 Renal failure: <15 24 Concerning GFR Guidelines: Normal function or mild renal disease, if clinically at risk: >/=60 mL/min Moderately decreased: 30-59 Severely decreased: 15-29 Renal failure: <15 Glomerular Filtration Rate (GFR) is estimated based on the MDRD equation, which assumes a steady state for creatinine as recommended by the National Kidney Disease Education Program in conjunction with the National Institutes of Health and the National Kidney Foundation. Clinical conditions in which it may be necessary to measure GFR by using clearance methods include extremes of age and body size, severe malnutrition or obesity, diseases of skeletal muscle, paraplegia or quadriplegia, vegetarian diet, rapidly changing kidney function, and calculation of the dose of potentially toxic drugs that are excreted by the kidneys. 25 QUERY: Is the Patient Fasting? Y 26 OPERATION/PROCEDURE Colonoscopy, upper endoscopy DIAGNOSIS: PART 1: "DUODENUM BIOPSIES": -BENIGN SMALL INTESTINAL MUCOSA WITH NO SIGNIFICANT PATHOLOGIC ABNORMALITIES. -NO EVIDENCE OF VILLOUS BUNTING OR INCREASED INTRAEPITHELIAL LYMPHOCYTES. PART 2: "STOMACH, BIOPSIES": -ANTRAL-TYPE GASTRIC MUCOSA WITH MODERATE CHRONIC HELICOBACTOR GASTRITIS; SEE COMMENT. /clf [id number] INTERPRETATION COMMENT Part 2. A Warthin-Starry stain with appropriately reacting controls, is focally positive for Helicobactor organisms. GROSS The specimen is received in two properly labeled containers labeled with the patient's name and accession number. Part 1. The specimen is received in formalin in a container labeled, "DUODENAL BIOPSIES". The specimen consists of multiple pieces of castillo, soft, rubbery tissue with an aggregate measurement of 0.6 x 0.3 x 0.3 cm. The specimen is submitted entirely within a single cassette. Part 2. The specimen is received in formalin in a container labeled, "STOMACH BIOPSIES". The specimen consists of multiple pieces of castillo, soft, rubbery tissue with an aggregate diameter of 0.4 x 0.4 x 0.3 cm. The specimen is submitted entirely within a single cassette. CC/clf PRE OPERATIVE DIAGNOSIS Iron def. anemia REVIEW CODE CODE: I Signed Electronically signed Kaiden CHINCHILLA MD 1204 27 today 28 Per NCEP ATP III Guidelines: Results lower than 40 mg/dL are suggestive of increased risk for coronary artery disease. Results > or=to 60 mg/dL are considered a negative risk factor. 29 Per NCEP ATP III Guidelines: Normal Population <130 Patients with medical conditions: CHD/DM Optimal: <100 Borderline high: 130-159 High: 160-189 Very high: >189 30 Concerning GFR Guidelines: Normal function or mild renal disease, if clinically at risk: >/=60 mL/min Moderately decreased: 30-59 Severely decreased: 15-29 Renal failure: <15 Glomerular Filtration Rate (GFR) is estimated based on the MDRD equation, which assumes a steady state for creatinine as recommended by the National Kidney Disease Education Program in conjunction with the National Institutes of Health and the National Kidney Foundation. Clinical conditions in which it may be necessary to measure GFR by using clearance methods include extremes of age and body size, severe malnutrition or obesity, diseases of skeletal muscle, paraplegia or quadriplegia, vegetarian diet, rapidly changing kidney function, and calculation of the dose of potentially toxic drugs that are excreted by the kidneys. 31 Concerning GFR Guidelines for Americans: Normal function or mild renal disease, if clinically at risk: >/=60 mL/min Moderately decreased: 30-59 Severely decreased: 15-29 Renal failure: <15 Procedures Date Code Description Status 12/09/2018 69767 Brief Emotional/Behav Assessment W/ Scoring Doc Per Completed [facility] 10/06/2018 [id number] Mammogram Completed 05/01/2018 49433 Brief Emotional/Behav Assessment W/ Scoring Doc Per Completed [facility] 02/09/2015 [id number] Colonoscopy Completed 10/04/2014 [id number] Mammogram Completed 08/18/2014 [id number] Bone Mineral Density Test Completed Encounters Type Date Location Provider Dx Diagnosis Office Visit 05/01/2018 [facility] Juliet Medina MD Z01.419 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) (routine) w/o abn findings Z71.9 Counseling, unspecified Z13.31 Encounter for screening for depression D51.9 Vitamin B12 deficiency anemia, unspecified D50.9 Iron deficiency anemia, unspecified R31.9 Hematuria, unspecified Z13.89 Encounter for screening for other disorder Office Visit 04/29/2017 3:00p [facility] Juliet Medina MD 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 abn findings F33.0 Major depressive disorder, recurrent, mild E53.8 Deficiency of other specified B group vitamins D50.9 Iron deficiency anemia, unspecified Z12.31 Encntr screen mammogram for malignant neoplasm of breast R31.9 Hematuria, unspecified Office Visit 04/06/2016 2:00p [facility] Juliet Medina MD 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 abn findings F33.0 Major depressive disorder, recurrent, mild D51.9 Vitamin B12 deficiency anemia, unspecified D50.9 Iron deficiency anemia, unspecified Z11.59 Encounter for screening for other viral diseases Z12.31 Encntr screen mammogram for malignant neoplasm of breast Office Visit 06/28/2015 2:45p [facility] Juliet Medina MD F33.0 Major depressive disorder, recurrent, mild D51.9 Vitamin B12 deficiency anemia, unspecified D50.9 Iron deficiency anemia, unspecified Office Visit 04/05/2015 2:00p [facility] Juliet Medina MD 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 findings D51.9 Vitamin B12 deficiency anemia, unspecified D50.9 Iron deficiency anemia, unspecified B96.81 Helicobacter pylori as the cause of diseases classd elswhr F33.0 Major depressive disorder, recurrent, mild Office Visit 08/18/2014 9:30a [facility] Juliet Medina MD 296.31 Depressive Disorder Major Recurrent Mild V76.11 Screening Mammogram For High Risk V76.51 Special Screening For Malignant Neoplasms Colon V77.91 Screening For Lipoid Disorders Plan of Treatment Future Appointment(s):05/11/2019 10:30 am - Juliet Medina MD at [facility]12/09/2018 - Juliet Medina MDF33.0 Major depressive disorder, recurrent, mildComments: She will continue taking low dose of fluoxetine medication. Patient was educated about the side effects caused by fluoxetine drug.Follow up:Follow up as scheduled in May.
[2018-12-16 10:38] VITALS: BP 101/61
--- NOTE | 2018-12-16 11:06 | UC ---
Skin Complaint HPI - HPI Summary HPI Summary: left upper arm redness x 1 day ? bug bite vs contact dermatitis due to poison umberto the area is res, swollen, warm to touch , mild tenderness no fever, + chills, - History of Current Complaint Chief Complaint: UCRash Time Seen by Provider: 12/16/18 10:52 Stated Complaint: LEFT ARM SKIN Hx Obtained From: Patient Hx Last Menstrual Period: 1 yr Onset/Duration: Sudden Onset, Lasting Days - 1, Still Present Timing: Constant Onset Severity: Moderate Current Severity: Moderate Pain Intensity: 2 Location: Discrete - left upper arm Character: Swelling, Pain, Redness, Raised Aggravating Factor(s): Touch Alleviating Factor(s): Nothing Associated Signs & Symptoms: Positive: Chills, Tenderness. Negative: Nausea, Vomiting, Weakness, Fever, Cough, Red Streaks Related History: Insect Bite/Sting - Allergy/Home Medications Allergies/Adverse Reactions: Allergies Allergy/AdvReac Type Severity Reaction Status Date / Time Sulfa (Sulfonamide Allergy Rash Verified 12/16/18 10:31 Antibiotics) Home Medications: Home Medications Acetaminophen [Acetaminophen Extra Strength] 500 mg PO DAILY PRN 12/16/18 [ History Confirmed 12/16/18] L.acidoph,Paracasei, B.lactis [Probiotic] 1 each PO DAILY 12/16/18 [History Confirmed 12/16/18] PMH/Surg Hx/FS Hx/Imm Hx Previously Healthy: Yes - Surgical History Surgical History: Yes Surgery Procedure, Year, and Place: tonsils - Family History Known Family History: Positive: Cardiac Disease - Social History Alcohol Use: Occasionally Substance Use Type: None Smoking Status (MU): Never Smoked Tobacco Have You Smoked in the Last Year: No - Immunization History Vaccination Up to Date: Yes Review of Systems All Other Systems Reviewed And Are Negative: Yes Constitutional: Positive: Chills, Fatigue Eyes: Positive: Negative ENT: Positive: Negative Respiratory: Positive: Negative Is Patient Immunocompromised?: No Physical Exam Triage Information Reviewed: Yes Appearance: Well-Appearing, No Pain Distress, Well-Nourished Vital Signs: Initial Vital Signs Temp 99.1 F 12/16/18 10:33 Pulse 79 12/16/18 10:33 Resp 18 12/16/18 10:33 BP 101/61 12/16/18 10:33 Pulse Ox 100 06/18/19 10:33 Eyes: Positive: Conjunctiva Clear ENT: Positive: Normal ENT inspection, Hearing grossly normal, Pharynx normal Neck: Positive: Supple, Nontender, No Lymphadenopathy Respiratory: Positive: Chest non-tender, Lungs clear, Normal breath sounds Cardiovascular: Positive: RRR, No Murmur, Pulses Normal Skin: Positive: Other - left upper arm : + erythema, mild swelling, tender and warm to touch Course/Dx - Diagnoses Provider Diagnosis: Cellulitis of left arm Discharge - Sign-Out/Discharge Documenting (check all that apply): Patient Departure All imaging exams completed and their final reports reviewed: No Studies - Discharge Plan Condition: Stable Disposition: HOME Prescriptions: DOXYcycline CAP(*) [DOXYcycline 100MG CAP(*)] 100 mg PO BID #[id number] cap Patient Education Materials: Cellulitis (ED) Referrals: Juliet Jean Baptiste MD [Primary Care Provider] - 7 Days - Billing Disposition and Condition Condition: STABLE Disposition: Home
== END 2018-12-16 11:06 | disposition home or self-care (01) ==
LOC: UCCORT 09:40
DX: L03.114 Cellulitis of left upper limb (principal); Z88.2 Allergy status to sulfonamides
CPT/HCPCS: 99212; G0463